=== PATIENT | male | born 1945 ===

== ENCOUNTER → 2018-10-10 | Outpatient (CLI) | payer OTHER ==
[~2018-10-10] MED LIST: HYDACE5; Norco 5-325 Ta1 EACH PO; OXYACE5T PO; PROM25 PO; ROSU10TA
== END | disposition home or self-care (01) ==
LOC: PLD 07:58 → LAB SHORT 07:58
DX: D48.5 Neoplasm of uncertain behavior of skin (principal)
CPT/HCPCS: 88305

== ENCOUNTER → 2019-05-27 | Outpatient (CLI) | payer OTHER | END | disposition home or self-care (01) | LOC: PLD 14:59 → LAB SHORT 14:59 | DX: D48.5 Neoplasm of uncertain behavior of skin (principal) | CPT/HCPCS: 88305 ==

== ENCOUNTER 2019-06-28 13:52 | Emergency (ER) | payer OTHER ==
[~2019-06-28] VITALS: Ht 167.6 cm; Wt 72.6 kg
[2019-06-28 14:47] LABS: BASOPHILS ABSOLUTE AUTO 0.02 K/mm3 (0.00-0.23); BASOPHILS PERCENT AUTO 0 % (0-2); EOSINOPHILS ABSOLUTE AUTO 0.03 K/mm3 (0.00-0.68); EOSINOPHILS PERCENT AUTO 1 % (0-6); Hematocrit 42.1 % (37.0-53.0); Hemoglobin 13.4 g/dL (13.5-17.5); IMMATURE GRAN ABSOLUTE AUTO 0.02 K/mm3 (0.00-0.10); IMMATURE GRAN PERCENT AUTO 0 % (0-1); LYMPHOCYTES ABSOLUTE AUTO 0.86 K/mm3 (0.84-5.20); LYMPHOCYTES PERCENT AUTO 15 % (21-46); MONOCYTES ABSOLUTE AUTO 0.54 K/mm3 (0.16-1.47); MONOCYTES PERCENT AUTO 10 % (4-13); Mean Corpuscular HGB Conc 31.8 g/dL (31.5-36.5); Mean Corpuscular Volume 94 fL (80-100); Mean Platelet Volume 11.1 fL (9.1-12.4); NEUTROPHILS ABSOLUTE AUTO 4.12 K/mm3 (1.96-9.15); NEUTROPHILS PERCENT AUTO 74 % (41-73); Platelet Count 168 K/mm3 (150-400); RDW Coefficient Variation 13.4 % (11.7-14.2); RDW Standard Deviation 46.7 fL (35.1-46.3); Red Blood Cell Count 4.47 M/mm3 (4.30-5.90); White Blood Cell Count 5.59 K/mm3 (4.00-11.30)
[2019-06-28 14:55] LABS: Alanine Aminotransfer (ALT/SGP 23 U/L (12-78); Albumin, Blood 3.8 g/dL (3.4-5.0); Albumin/Globulin Ratio 1.1 (0.8-1.8); Alk Phos 66 U/L (50-136); Anion Gap 6 mmol/L (6-16); Aspartate Aminotrans (AST/SGOT 27 U/L (12-37); Bilirubin, Total 0.5 mg/dL (0.1-1.0); Blood Urea Nitrogen 9 mg/dL (8-24); Bun/Creatinine Ratio 10.6 (12.0-20.0); CO2, Blood 26 mmol/L (21-32); Calcium, Blood 9.1 mg/dL (8.5-10.1); Chloride, Blood 110 mmol/L (98-108); Creatinine, Blood 0.85 mg/dL (0.60-1.20); Globulin, Blood 3.6 g/dL (2.2-4.0); Glomerular Filtration Rate >60 (60-); Glucose, Blood 99 mg/dL (70-99); Potassium, Blood 4.6 mmol/L (3.5-5.5); Sodium, Blood 142 mmol/L (136-145); Total Protein, Blood 7.4 g/dL (6.4-8.2)
[2019-06-28] MEDS ORDERED: OXYC1TAB11 PO (14:58)
[2019-06-28] MEDS ORDERED: LIVALO4 MG PO (14:58)
[2019-06-28] MEDS ORDERED: DONE5 PO (14:59)
[2019-06-28 15:03] LABS: International Normalized Ratio 0.96; Prothrombin Time Results 10.3 Sec (9.7-11.5)
[2019-06-28 15:08] LABS: Ethanol (Alcohol), Blood, Med <3 mg/dL
== END 2019-06-28 17:15 | disposition short-term general hospital (02) ==
LOC: ER 13:52
PROVIDERS: Physician Assistant
DX: I61.8 Other nontraumatic intracerebral hemorrhage (principal); Z88.5 Allergy status to narcotic agent; Z79.899 Other long term (current) drug therapy
CPT/HCPCS: 36415; 70450; 80053; 85025; 85610; 85730; 93005; 93010; 96365; 99285-25; G0480; J1953